=== PATIENT | female | born 1950 | race Caucasian/White ===

== ENCOUNTER → 2017-11-02 | Outpatient (CLI) | payer MEDICARE ==
[2017-11-02 14:14] LABS: FIO2 ROOM AIR %
== END | disposition home or self-care (01) ==
LOC: LAB 13:50
PROVIDERS: ATTEND Family Medicine
DX: E78.2 Mixed hyperlipidemia (principal)
CPT/HCPCS: 36600; 82803

== ENCOUNTER → 2017-11-02 | Outpatient (CLI) | payer MEDICARE | END | disposition home or self-care (01) | LOC: CFH 14:35 | PROVIDERS: ATTEND Nurse Practitioner | DX: Z12.31 Encounter for screening mammogram for malignant neoplasm of breast (principal); M81.0 Age-related osteoporosis without current pathological fracture; N95.8 Other specified menopausal and perimenopausal disorders; Z85.3 Personal history of malignant neoplasm of breast | CPT/HCPCS: 77080; 77067 ==